=== PATIENT | female | born 1965 | race Caucasian/White ===

== ENCOUNTER → 2018-05-03 | Outpatient (CLI) | payer OTHER ==
--- NOTE | 2018-05-03 14:29 | PCVCIMAG ---
EXAM: ULTRASOUND OF THE THYROID INDICATION: Thyroid nodules. FINDINGS: The right thyroid lobe measures 1.6 x 1.6 x 4.4 cm. The left thyroid lobe measures 1.3 x 1.5 x 4.2 cm. 1.1 x 1.2 x 1.7 cm predominantly solid nodule lower lobe right thyroid lobe which contains internal cystic spaces is unchanged since 2016 study. 0.4 x 0.6 x 0.7 cm benign cyst mid upper right thyroid lobe medially also unchanged. 0.5 x 0.8 x 1.1 cm well-circumscribed predominantly solid lesion mid right thyroid lobe laterally also unchanged. 0.9 x 0.7 x 1.3 cm predominantly cystic nodule mid left thyroid lobe is unchanged. 0.4 x 0.5 x 0.7 cm benign cyst upper pole left thyroid lobe unchanged. IMPRESSION: Multiple nodules in the thyroid as fully detailed above are unchanged since 2016 study. LOC:OFFICE
== END | disposition home or self-care (01) ==
LOC: PCVCIMAG 13:47
PROVIDERS: ATTEND Internal Medicine Cardiovascular Disease
DX: E04.1 Nontoxic single thyroid nodule (principal)
CPT/HCPCS: 76536